=== PATIENT | male | born 1990 | race Hispanic/Latino ===

== ENCOUNTER 2024-12-20 00:05 | Emergency (ER) | payer SELFPAY ==
[~2024-12-20] VITALS: Ht 170.2 cm; Wt 86.2 kg
[2024-12-20 00:30] VITALS: PULSE 90; RESP 17; TEMP 98.3; O2SAT 100
[2024-12-20] MEDS ORDERED: ULTRAM 50MG50 MG PO (01:40)
== END 2024-12-20 01:54 | disposition home or self-care (01) ==
LOC: ER 00:11
DX: S43.101A Unspecified dislocation of right acromioclavicular joint, initial encounter (principal); V86.59XA Driver of other special all-terrain or other off-road motor vehicle injured in nontraffic accident, initial encounter; Y92.89 Other specified places as the place of occurrence of the external cause; F17.210 Nicotine dependence, cigarettes, uncomplicated
CPT/HCPCS: 99284